=== PATIENT | male | born 1950 | race Caucasian/White ===

== ENCOUNTER 2016-10-08 11:57 | Day surgery (SDC) | payer OTHER ==
[~2016-10-08] VITALS: Ht 190.5 cm; Wt 134.0 kg
[~2016-10-08 11:57] MED LIST: AMLODIPINE BESYL5 MG PO; ASPIR-LOW81 MG PO; ASPIRIN81 M2 PO; CARVEDILOL6.25 MG PO; CENTRUM SILVER1 EAC3 PO; CINNAMON500 MG PO; CLEOCIN300 MG PO; DICLOXACILLIN500 MG PO; GLUCOPHAGE500 MG PO; HYDROCHLOROTH12.5 M3 PO; HYDROCHLOROTHIA25 MG PO; JANUVIA25 M1 PO; LISINOPRIL10 MG PO; LISINOPRIL40 MG PO; METFORMIN HCL1000 MG PO; METFORMIN HCL500 MG PO; NEURONTIN300 MG PO; NORVASC10 MG PO; NORVASC5 MG PO; OXYCODONE HCL5 MG PO; VITAMIN D35000 UNIT PO; VITAMIN D5000 UNIT PO
[2016-10-08 12:27] VITALS: BP 144/101
[2016-10-08 12:38] LABS: POINT-OF-CARE METER ID UU14174212
[2016-10-08 19:35] LABS: POINT-OF-CARE METER ID UU13113675
[2016-10-08 21:43] VITALS: BP 138/81
[2016-10-08 23:52] VITALS: BP 130/77
[2016-10-09 03:26] VITALS: BP 114/59
[2016-10-09 07:44] VITALS: BP 102/66
[2016-10-09 11:21] VITALS: BP 108/64
[2016-10-09] MEDS ORDERED: OXYCODONE-APAP1 EACH PO (14:53)
[2016-10-09] MEDS ORDERED: XARELTO10 MG PO (15:03)
[2016-10-09 16:21] VITALS: BP 128/72
== END 2016-10-09 16:15 | disposition home or self-care (01) ==
LOC: SDC 11:57 → 2EAST 19:13 → 2SOUTH 19:13 → 2EAST 21:35
PROVIDERS: Podiatrist Foot & Ankle Surgery
PROC: 0SGK04Z Fusion of Right Tarsometatarsal Joint with Internal Fixation Device, Open Approach (ICD-10-PCS; principal; 2016-10-08)
DX: E11.610 Type 2 diabetes mellitus with diabetic neuropathic arthropathy (principal); I10 Essential (primary) hypertension; E11.65 Type 2 diabetes mellitus with hyperglycemia; E66.9 Obesity, unspecified; Z68.35 Body mass index [BMI] 35.0-35.9, adult; Z83.3 Family history of diabetes mellitus; Z82.49 Family history of ischemic heart disease and other diseases of the circulatory system
CPT/HCPCS: 73630; 76000; 82948; 94799; C1713; G0378; J0330; J0690; J1100; J1170; J2250; J2405; J3010; J7120; P9045; S0020

== ENCOUNTER → 2017-06-29 | Outpatient (CLI) | payer OTHER ==
[~2017-06-29] MED LIST changes: +OXYCODONE-APAP1 EACH PO; +XARELTO10 MG PO
== END | disposition home or self-care (01) ==
LOC: CDC 08:13
DX: Z01.810 Encounter for preprocedural cardiovascular examination (principal); R97.20 Elevated prostate specific antigen [PSA]; I49.8 Other specified cardiac arrhythmias
CPT/HCPCS: 93000

== ENCOUNTER 2017-07-20 15:59 | Emergency (ER) | payer OTHER ==
[~2017-07-20] VITALS: Ht 190.5 cm; Wt 123.5 kg
[2017-07-20 16:51] LABS: HEMATOCRIT 41.7 % (38.0-50.0); MCH 29.5 PG (29.0-34.0); MCHC 34.5 G/DL (30.0-36.0); MCV 85.5 FL (86-99); MEAN PLAT.VOLUME 11.4 uM^3 (9.0-12.4); PLATELET COUNT 238 K/uL (156-360); RBC DIS.WIDTH-CV 13.1 % (11.8-14.6); RBC DIS.WIDTH-SD 40.8 % (39-53); RED BLOOD COUNT 4.88 M/uL (4.00-5.50)
[2017-07-20 17:01] LABS: CHLORIDE 100 mEq/L (99-109); POTASSIUM 3.8 mEq/L (3.7-5.4); SODIUM 135 mEq/L (136-147)
[2017-07-20 17:03] LABS: GLUCOSE 164 mg/dL (70-99)
[2017-07-20 17:04] LABS: ANION GAP 13 MEQ/L (2-14)
[2017-07-20 17:07] LABS: GFR ESTIMATE (CALCULATED) 50 mL/min/ (58.99-99999); UREA NITROGEN (BUN) 14 mg/dL (9-23)
[2017-07-20 17:30] LABS: TROP-I INTERPRETATION NEGATIVE; TROPONIN-I < 0.01 ng/mL (0.0-0.30)
[2017-07-20 18:25] VITALS: BP 127/79
== END 2017-07-20 18:28 | disposition home or self-care (01) ==
LOC: EME 15:59
PROVIDERS: Emergency Medicine
DX: R55 Syncope and collapse (principal); Z98.890 Other specified postprocedural states; E11.9 Type 2 diabetes mellitus without complications; F41.9 Anxiety disorder, unspecified; Z79.84 Long term (current) use of oral hypoglycemic drugs; Z79.82 Long term (current) use of aspirin
CPT/HCPCS: 80048; 84484; 85027; 93005; 99281; 99285; J7030